=== PATIENT | female | born 2000 | race Caucasian/White ===

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

== ENCOUNTER 2021-01-04 18:14 | Outpatient (CLI) | payer OTHER, SELFPAY ==
[2021-01-04 18:36] VITALS: BP 133/71; PULSE 106; RESP 18; TEMP 36.7; O2SAT 97; BMI 34.6
[2021-01-04 18:42] VITALS: BMI 34.6
[2021-01-04 18:45] LABS: Microscopic, Urine URINE MICROSCOPIC (MICROSCOPIC)
[2021-01-04 19:01] LABS: Appearance,Urine CLEAR (Clear); Blood, Urine Negative (Negative); Color,Urine AMBER (Yellow); Glucose,Urine (UA) Negative (Negative); Ketones,Urine TRACE (Negative); Leukocyte Esterase,Urine TRACE (Negative); Nitrate,Urine Negative (Negative); PH,Urine 6.5 (5.0-8.5); Protein,Urine TRACE (Negative); Specific Gravity, Urine 1.025 (1.005-1.030)
[2021-01-04 19:06] LABS: Bilirubin,Urine Negative (Negative)
[2021-01-04 19:10] LABS: Barbiturates Screen,Urine Negative ng/ml (<200)
[2021-01-04 19:11] LABS: Benzodiazepines Screen,Urine Negative ng/ml (<200)
[2021-01-04 19:12] LABS: Amphetamine/Metha Screen,Urine Negative ng/ml (<1000); Cannabinoid Screen,Urine Negative ng/ml (<50)
[2021-01-04 19:13] LABS: Cocaine Screen,Urine Negative ng/ml (<300)
[2021-01-04 19:14] LABS: Methadone Screen,Urine Negative ng/ml (<300); Opiate Screen,Urine Negative ng/ml (<300)
[2021-01-04 19:15] LABS: Phencyclidine Screen,Urine Negative ng/ml (<25)
== END 2021-01-04 21:40 | disposition home or self-care (01) ==
LOC: OBOUT 18:15 → OB 18:17
PROVIDERS: Visit Provider Obstetrics & Gynecology
DX: Z34.90 Encounter for supervision of normal pregnancy, unspecified, unspecified trimester (principal)
CPT/HCPCS: 59025; 80305; 81001; 87086; 96365; 96372; G0463

== ENCOUNTER → 2021-01-20 16:16 | Outpatient (CLI) | payer OTHER, SELFPAY | PROVIDERS: PCP Physician Assistant; Visit Provider Nurse Practitioner Obstetrics & Gynecology | DX: Z01.812 Encounter for preprocedural laboratory examination (principal); Z20.822 Contact with and (suspected) exposure to COVID-19 | CPT/HCPCS: U0003 ==

== ENCOUNTER 2021-01-22 05:02 | Inpatient (IN) | payer OTHER, SELFPAY ==
[2021-01-22 05:05] VITALS: BMI 35.1
[2021-01-22 05:38] LABS: Microscopic, Urine URINE MICROSCOPIC (MICROSCOPIC)
[2021-01-22 05:43] LABS: Basophils % 0.3 % (0.1-2.0); Eosinophils # 0.1 K/mm3 (0.0-0.4); Eosinophils % 0.6 % (0.1-12.0); Hematocrit 35.1 % (37.0-47.0); Hemoglobin 11.9 g/dL (12.2-16.2); Lymphocytes # 2.5 K/mm3 (0.7-4.5); Lymphocytes % 24.3 % (10-50); Mean Corpuscular HGB Conc 33.8 g/dL (31.8-35.4); Mean Corpuscular Volume 88.8 fl (81-99); Mean Platelet Volume 10.1 fl (7.4-10.4); Monocytes # 0.6 K/mm3 (0.1-1.0); Monocytes % 5.4 % (1.7-9.3); Neutrophils # 7.1 K/mm3 (1.8-7.8); Neutrophils % 69.4 % (37.0-80.0); Platelet Count 304 K/mm3 (142-424); Red Blood Count 3.95 M/mm3 (4.20-5.40); Red Cell Distribution Width 14.3 % (11.5-17.5); White Blood Count 10.3 K/mm3 (4.5-13.0)
[2021-01-22 05:44] LABS: Appearance,Urine CLEAR (Clear); Blood, Urine Negative (Negative); Glucose,Urine (UA) Negative (Negative); Ketones,Urine Negative (Negative); Leukocyte Esterase,Urine Negative (Negative); Nitrate,Urine Negative (Negative); Protein,Urine Negative (Negative); Specific Gravity, Urine >= 1.030 (1.005-1.030)
[2021-01-22 05:45] LABS: Bilirubin,Urine Negative (Negative); Color,Urine Dark Yellow (Yellow)
[2021-01-22 05:50] VITALS: BP 135/72; PULSE 89; RESP 18; TEMP 36.9; O2SAT 97; BMI 35.1
[2021-01-22 05:53] LABS: Bacteria,Urine Trace /lpf; Squamous Epithelial Cell,Urine Occasional #/hpf (0-5); WBC,Urine Occasional #/hpf (0-3)
[2021-01-22 05:55] LABS: Barbiturates Screen,Urine Negative ng/ml (<200)
[2021-01-22 05:56] LABS: Benzodiazepines Screen,Urine Negative ng/ml (<200)
[2021-01-22 05:57] LABS: Amphetamine/Metha Screen,Urine Negative ng/ml (<1000); Cannabinoid Screen,Urine Negative ng/ml (<50)
[2021-01-22 05:58] LABS: Cocaine Screen,Urine Negative ng/ml (<300)
[2021-01-22 05:59] LABS: Methadone Screen,Urine Negative ng/ml (<300); Opiate Screen,Urine Negative ng/ml (<300)
[2021-01-22 06:00] LABS: Phencyclidine Screen,Urine Negative ng/ml (<25)
[2021-01-22 07:57] VITALS: BP 105/58; PULSE 65; RESP 17; TEMP 37; O2SAT 99
--- NOTE | 2021-01-22 08:27 | HMH.LABNOT ---
Labor Note - Subjective: Date: 01/22/21 Time: 08:27 regular contraction - Objective: NST:: Reactive Contractions:: every 2-3 minutes Cervical Dilation:: 3 Effacement:: 75% Station: -1 Membranes: artificially ruptured - Fetus: Monitoring?: Yes monitoring type:: Internal and External Comment:: I inserted an IUPC. - Assessment: Labor progressing?: Yes Cephalopelvic disproportion?: No Patient Problems: All Active Problems (Last Updated 07/01/20 @ 15:14 by XU Hendricks) (Acute) Hypokalemia (Acute) Pharyngitis (Acute) Bronchitis (Acute) Acute cystitis with hematuria (Acute) Bacteriuria with pyuria (Acute) URI (upper respiratory infection) (Acute) Dizziness (Acute) Rh negative status during (Chronic) Sinusitis (Acute) Acute maxillary sinusitis, unspecified (Acute) UTI (urinary tract infection) (Acute) Right serous otitis media (Acute) Vomiting and diarrhea (Acute) Headache (Acute) Otitis media (Acute) Vomiting (Acute) - Plan: Anesthesia for epidural?: Yes Continue to labor down?: Yes Plan for ?: No Continue to monitor?: Yes Start pushing?: No
--- NOTE | 2021-01-22 08:28 | HMH.OBAPHP ---
OB - H&P: HPI Antepartum - History of Present Illness Chief complaint: Term History of present illness: She is a 20-year-old 2 para 1 at 39 weeks gestational age. She was having some contractions and pressure and as result of that we elected to induce her labor at term. - History of Present Criteria for establishing EDC:: LMP confirmed by 1st trimester US care: good care Ultrasounds: normal 1st trimester US, normal mid trimester US Obstetrical complications: none Medical complications: none - Labs Blood type: O (-) negative Rubella: immune RPR/VDRL: nonreactive GBS status: negative HBsAG: negative [facility] History I have reviewed the patient's past medical history: Yes Medical History: Denies:: Anxiety, Cancer, Diabetes Mellitus Type 1, Diabetes Mellitus Type 2, Migraine, MRSA, Seizures *Have you ever received a pneumonia vaccine?: No *Have you received a flu vaccine this season?: No Other Surgeries: Yes: No Previous Surgery. No: Amputation: No Fractures: No - *Social History Smoking Status: Current every day smoker Tobacco Type: cigarettes # Packs/Day (cigarettes): 1 Alcohol Intake: never Alcohol Intake Frequency:: other Substance Use Type: former substance user, marijuana *Occupational Status:: unemployed *Travel in the last 8 weeks: None - Psychiatric History Pschychiatric History:: Denies:: Anxiety Family Hx:: No significant family history Para: 1 Review of Systems - Review of Systems Review of systems:: pertinent systems reviewed and negative unless documented below Meds Home Medications Medication Instructions Recorded Confirmed Type Vit No.126/Iron/Folic 1 tab PO DAILY 01/22/21 01/22/21 History [Classic ] Allergies Allergy/AdvReac Type Severity Reaction Status Date / Time No Known Allergies Allergy Verified 01/20/21 15:29 OB - H&P: Exam - Physical Exam Vital signs: Temp Pulse Resp BP Pulse Ox 98.6 F 65 17 105/58 L 99 01/22/21 07:57 01/22/21 07:57 01/22/21 07:57 01/22/21 07:57 01/22/21 07:57 - Constitutional no acute distress - Routine HEENT Exam Head: Present: normocephalic Eye: Present: EOMI, PERRL ENT: Present: mucous membranes moist - Routine Neck Exam Present: supple, full ROM - Routine Respiratory Exam Absent: accessory muscle use (good air entry bilaterally), respiratory distress, wheezes, crackles - Routine Cardiovascular Exam Present: RRR. Absent: murmur - Routine Abdominal Exam Present: soft, normoactive bowel sounds. Absent: tenderness, distended, guarding - Routine Rectal Exam Patient deferred: visual exam, digital exam - Routine Exam Patient deferred: external exam, groin exam, perineal exam - Routine Extremities Exam Present: full ROM. Absent: cyanosis, edema - Routine Skin Exam Present: intact. Absent: cyanosis - Routine Neurological Exam Present: alert, oriented X3 - Routine Psychiatric Exam Present: normal affect OB - Results - Labs Labs: Short CBC 01/22/21 Range/Units 05:30 WBC 10.3 (4.5-13.0) K/mm3 Hgb 11.9 L (12.2-16.2) g/dL Hct 35.1 L (37.0-47.0) % Plt Count 304 (142-424) K/mm3 Urine 01/22/21 Range/Units 05:10 Urine Color Dark yellow (Yellow) Urine Appearance Clear (Clear) Urine pH 6.0 (5.0-8.5) Ur Specific [place] >= 1.030 (1.005-1.030) Urine Protein Negative (Negative) Urine Glucose (UA) Negative (Negative) OB - A/P Antepartum (1) Term delivered Status: Acute (2) Intrauterine in teenager Status: Acute - Additional Plan Planning to breastfeed?: No Plan: induction Additional Information:: She is admitted for labor and delivery.
--- NOTE | 2021-01-22 11:15 | HMH.ANESCL ---
[facility] Anesthesia Checklist - Patient Identification Patient Identification: Arm Band - Structural Data Admitted From: Inpatient Planned Operative Procedure/s: labor epidural Consent for Planned Operative Procedure(s) Verified: Yes Verified Documents: Surgical Consent, History and Physical - NPO Status Verified Time NPO: 00:00 - Additional verifications Anesthesia Reactions: No - Airway Assessment C-Spine Mobility Assessed: Yes (mp2) TMJ Mobility Assessed: Yes Dentition: Good Dentition - Neurological Assessment Level of Consciousness: Awake, Alert - Anesthesia Plan Anesthesia Risk discussed: Yes Anesthesia Plan: Verified ASA Class: II Anesthesia Type: Epidural [facility] History I have reviewed the patient's past medical history: Yes Medical History: Denies:: Anxiety, Cancer, Diabetes Mellitus Type 1, Diabetes Mellitus Type 2, Migraine, MRSA, Seizures *Have you ever received a pneumonia vaccine?: No *Have you received a flu vaccine this season?: No Anesthesia experience/problems:: nac Other Surgeries: Yes: No Previous Surgery. No: Amputation: No Fractures: No - *Social History Smoking Status: Current every day smoker Tobacco Type: cigarettes # Packs/Day (cigarettes): 1 Alcohol Intake: never Alcohol Intake Frequency:: other Substance Use Type: former substance user, marijuana *Occupational Status:: unemployed *Travel in the last 8 weeks: None - Psychiatric History Pschychiatric History:: Denies:: Anxiety Family Hx:: No significant family history Para: 1
[2021-01-22 11:58] VITALS: BP 118/58; PULSE 82; RESP 18; TEMP 36.6
--- NOTE | 2021-01-22 13:57 | HMH.LABNOT ---
Labor Note - Subjective: Date: 01/22/21 Time: 10:30 regular contraction - Objective: NST:: Reactive Contractions:: every 2-3 minutes Effacement:: 75% Membranes: artificially ruptured - Fetus: Monitoring?: Yes monitoring type:: Internal and External - Assessment: Labor progressing?: Yes Cephalopelvic disproportion?: No Patient Problems: All Active Problems (Last Updated 07/01/20 @ 15:14 by XU Hendricks) Term delivered (Acute) Intrauterine in teenager (Acute) (Acute) Hypokalemia (Acute) Pharyngitis (Acute) Bronchitis (Acute) Acute cystitis with hematuria (Acute) Bacteriuria with pyuria (Acute) URI (upper respiratory infection) (Acute) Dizziness (Acute) Rh negative status during (Chronic) Sinusitis (Acute) Acute maxillary sinusitis, unspecified (Acute) UTI (urinary tract infection) (Acute) Right serous otitis media (Acute) Vomiting and diarrhea (Acute) Headache (Acute) Otitis media (Acute) Vomiting (Acute) - Plan: Anesthesia for epidural?: Yes Continue to labor down?: Yes Plan for ?: No Continue to monitor?: Yes Start pushing?: No
--- NOTE | 2021-01-22 13:58 | HMH.LABNOT ---
Labor Note - Subjective: Date: 01/22/21 Time: 13:58 regular contraction - Objective: NST:: Reactive Contractions:: every 2-3 minutes Effacement:: 90% Station: -1 Membranes: artificially ruptured - Fetus: Monitoring?: Yes monitoring type:: Internal and External - Assessment: Labor progressing?: Yes Cephalopelvic disproportion?: No Patient Problems: All Active Problems (Last Updated 07/01/20 @ 15:14 by XU Hendricks) Term delivered (Acute) Intrauterine in teenager (Acute) (Acute) Hypokalemia (Acute) Pharyngitis (Acute) Bronchitis (Acute) Acute cystitis with hematuria (Acute) Bacteriuria with pyuria (Acute) URI (upper respiratory infection) (Acute) Dizziness (Acute) Rh negative status during (Chronic) Sinusitis (Acute) Acute maxillary sinusitis, unspecified (Acute) UTI (urinary tract infection) (Acute) Right serous otitis media (Acute) Vomiting and diarrhea (Acute) Headache (Acute) Otitis media (Acute) Vomiting (Acute) - Plan: Anesthesia for epidural?: Yes Continue to labor down?: Yes Plan for ?: No Continue to monitor?: Yes Start pushing?: No
[2021-01-22 16:03] VITALS: BP 123/74; PULSE 76; RESP 17; TEMP 36.8; O2SAT 99
--- NOTE | 2021-01-22 17:15 | HMH.LABNOT ---
Labor Note - Subjective: Date: 01/22/21 Time: 17:15 regular contraction - Objective: NST:: Reactive Contractions:: every 2-3 minutes Effacement:: 100% Station: 0 Membranes: artificially ruptured - Fetus: Monitoring?: Yes monitoring type:: Internal and External - Assessment: Labor progressing?: Yes Cephalopelvic disproportion?: No Patient Problems: All Active Problems (Last Updated 07/01/20 @ 15:14 by XU Hendricks) Term delivered (Acute) Intrauterine in teenager (Acute) (Acute) Hypokalemia (Acute) Pharyngitis (Acute) Bronchitis (Acute) Acute cystitis with hematuria (Acute) Bacteriuria with pyuria (Acute) URI (upper respiratory infection) (Acute) Dizziness (Acute) Rh negative status during (Chronic) Sinusitis (Acute) Acute maxillary sinusitis, unspecified (Acute) UTI (urinary tract infection) (Acute) Right serous otitis media (Acute) Vomiting and diarrhea (Acute) Headache (Acute) Otitis media (Acute) Vomiting (Acute) Comment:: She continues to do well. The baby's head comes down with a contraction. The cervix is then completely out. Will await full dilatation and then start pushing. - Plan: Anesthesia for epidural?: Yes Continue to labor down?: Yes Plan for ?: No Continue to monitor?: Yes Start pushing?: No
--- NOTE | 2021-01-22 18:09 | HMH.DN ---
- Delivery Note Delivery Date:: 01/22/21 Delivery Time:: 17:59 Anesthesia Type: Epidural Was labor medically induced?: Yes Induction method: per pitocin protocol Gestational age (weeks): 39 delivered prior to 39 weeks?: No Gender: Male at 1 minute: 9 at 5 minutes: 10 Delivery Procedure:: She is a 20-year-old 2 para 1 at 39 weeks gestational age. She was feeling pressure and discomfort so we elected to induce her labor at term. She was started on IV oxytocin and had her membranes ruptured. She progressed under labor epidural to full dilation and delivered spontaneously a liveborn male child at 5:59 PM in the afternoon of January 22, 2021. On deliver the head the anterior shoulder then easily delivered followed by the rest the 's body atraumatically. The baby was vigorous and the oropharynx and nasopharynx were bulb suction. We allowed the cord to continue to pulsate for approximately 1 minute. The cord was then doubly clamped and cut. The infant was placed on the mother's abdomen for further care. The nurses assigned Apgars of 9 at 1 minute and 10 at 5 minutes. We then obtained cord blood as well as cord pH. This is currently pending. There were no perineal or vaginal lacerations. She received IV oxytocin using gentle traction on the cord and countertraction on the fundus I was able to easily deliver the placenta at 6:02 PM. It had a normal three-vessel cord. She has O Rh- blood, she is rubella immune and was group B streptococcus negative. She plans to bottlefeed. Her estimated blood loss was approximately 300 cc. Placental Delivery Description: Spontaneous
[2021-01-22 18:19] LABS: Cord Blood PH 7.31 (7.35-7.45)
[2021-01-23 07:39] LABS: Hematocrit 28.4 % (37.0-47.0); Hemoglobin 9.9 g/dL (12.2-16.2)
[2021-01-23 08:00] VITALS: BP 123/70; PULSE 73; RESP 18; TEMP 36.9; O2SAT 98
--- NOTE | 2021-01-23 08:16 | P.PN_ITS ---
Internal Medicine - PN: Subj *Date: 01/23/21 *Time: 08:16 Interval history: She is doing very well this morning. She is eating and drinking and ambulating. She is bottlefeeding. Her lochia is normal. Exam Vital signs and Labs for Last 24 Hours: Temp Pulse Resp BP Pulse Ox 98.2 F 76 17 123/74 99 01/22/21 16:03 01/22/21 16:03 01/22/21 16:03 01/22/21 16:03 01/22/21 16:03 Laboratory Results - last 24 hr 01/22/21 05:10: Urine Color Dark yellow, Urine Appearance Clear, Urine pH 6.0, Ur Specific [place] >= 1.030, Urine Protein Negative, Urine Glucose (UA) Negative, Urine Ketones Negative, Urine Blood Negative, Urine Nitrate Negative, Urine Bilirubin Negative, Urine Urobilinogen 1.0, Ur Leukocyte Esterase Negative, Urine WBC Occasional, Ur Squamous Epith Cells Occasional, Urine Bacteria Trace 01/22/21 05:10: Urine Opiates Screen Negative, Urine Methadone Screen Negative, Ur Barbituates Screen Negative, Ur Phencyclidine Scrn Negative, Ur Amphetamines Screen Negative, U Benzodiazepines Scrn Negative, Urine Cocaine Screen Negative, U Marijuana (THC) Screen Negative 01/22/21 05:30: Blood Type O Negative, Antibody Screen Positive, Crossmatch (AHG) See Detail 01/22/21 05:30: Antibody Identification Anti-D 01/22/21 18:15: Cord ABG pH 7.31 L 01/23/21 07:22: Hgb 9.9 L, Hct 28.4 L I & O for Last 24 hours: Intake & Output 01/20/21 01/21/21 01/22/21 01/23/21 11:59 11:59 11:59 11:59 Weight 211 lb - Constitutional no acute distress - *Routine HEENT Exam Head: Present: normocephalic Eye: Present: EOMI, PERRL ENT: Present: mucous membranes moist Assessment and Plan (1) Term delivered Status: Acute Category: Medical Code(s): O80 - Encounter for full-term uncomplicated delivery (2) Intrauterine in teenager Status: Acute Category: Medical Code(s): Z34.80 - Encounter for supervision of other normal , unspecified trimester - Assessment and plan all Dx Assessment and Plan for all problems:: She is doing well this morning. We will plan to send her home tomorrow.
--- NOTE | 2021-01-23 10:43 | SW/DCPLANNER ---
I received referral for this patient regarding: THC positive (3 visits) and only 7 visits. I spoke with patient this morning in room regarding (Salvatore Tobin) born yesterday 01/22/21. Infants father was also present at time of my visit: Silas Tobin 06/25/98. Patient was positive for THC on: 07/01/20, 07/29/20 and 08/19/20. Patient was negative for THC on: 11/18/20, 12/22/20, 01/04/21, 01/08/21 and 01/22/21 (infant was also negative on admission 01/22/21). Patient stated that she had an in-depth conversation with Dr Antonio after third visit and decided to stop using THC. Patient, , other child (Lele Marina), Silas and his mother (Mera Valencia) will reside at [address] [place] [address]. Patients contact number is [phone]. Patient stated that she has had past Social Service involvement due to being in Foster Care as a child but was not an open case. Patient is already established with [facility] and is interested in [facility]. I will speak with [facility] regarding this patient today. Patient stated that she currently has: carseat, crib, clothing, diapers and will be bottle feeding. Patient is planned to discharge home tomorrow 01/23/21. Patients nurse (Martha) has stated that patient is appropriate with infant. has started scoring (4) due to caffeine/nicotine. I will continue to follow up with nursing staff: if no further issues then patient will discharge home tomorrow with infant.
[2021-01-23 16:00] VITALS: BP 120/70; PULSE 71; RESP 18; TEMP 36.6; O2SAT 96
[2021-01-24 08:00] VITALS: BP 131/75; PULSE 73; RESP 18; TEMP 36.8; O2SAT 98
--- NOTE | 2021-01-24 08:11 | P.DS_ITS ---
General - General Admission date:: 01/22/21 Discharge date: 01/24/21 HPI - History of Present Illness History of present illness: She is a 20-year-old 2 para 1 at 39 weeks gestational age. We brought her in for induction of labor at term. She was having pressure and occasional contractions. Hospital Course Hospital Course: She was started on IV oxytocin had her membranes ruptured. Under labor epidural progressed to full dilation and delivered spontaneously a liveborn male child at 5:59 PM in the afternoon of January 22, 2021. The baby weighed 7 pounds 0 ounces and was 19-1/4 inches long. He had Apgars of 9 at 1 minute and 9 at 5 minutes. There were no perineal or vaginal lacerations. She has done well and has remained afebrile without her hospitaliza tion. She is eating and drinking and ambulating. She is bottlefeeding. Her lochia is normal. She has O Rh- blood and has received RhoGam. She is rubella immune and was group B streptococcus negative. She will be discharged home to follow-up with me in approximately 2 weeks time. She will continue with her vitamins and iron. She was given the usual instructions with respect to limiting her activity, driving and sexual activity. Her dry yard worker is Dr. Grover. Rhogam Administration: Given Objective Vital signs: Temp Pulse Resp BP Pulse Ox 97.9 F 71 18 120/70 96 01/23/21 16:00 01/23/21 16:00 01/23/21 16:00 01/23/21 16:00 01/23/21 16:00 no acute distress - *Routine HEENT Exam Head: Present: normocephalic Eye: Present: EOMI, PERRL ENT: Present: mucous membranes moist Results Labs on day of discharge: Labs from last 24 hours 01/24/21 01/23/21 01/23/21 08:01 07:22 07:22 Blood Type O Negative Antibody Screen Positive Antibody Identification Cancelled Screen Negative Baby's Rh Status Positive Rhogam Infusion Rhogam release DS: Diagnosis - Discharge Diagnosis (1) Term delivered Status: Acute (2) Intrauterine in teenager Status: Acute Discharge Plan - Patient Discharge Instructions ACTIVITY: No heavy lifting DIET: continue same diet - Follow up Plan Disposition: Home, Self-Long-Term Medications: Home Medications Medication Instructions Recorded Confirmed Type Vit No.126/Iron/Folic 1 tab PO DAILY 01/22/21 01/22/21 History [Classic ] Prescriptions/Medication Reconciliation: Continued Vit No.126/Iron/Folic [Classic ] 1 tab PO DAILY - Problem Reconciliation Problems Reviewed?: Yes
[2021-01-24 12:00] VITALS: BP 128/66; PULSE 74; RESP 18; TEMP 36.9; O2SAT 95
== END 2021-01-24 14:45 | disposition home or self-care (01) | DRG 807 ==
PROVIDERS: Admitting Provider Nurse Practitioner Obstetrics & Gynecology; PCP Nurse Practitioner Obstetrics & Gynecology; Visit Provider Nurse Practitioner Obstetrics & Gynecology
DX: O99.334 Smoking (tobacco) complicating childbirth (principal); Z37.0 Single live birth; Z3A.39 39 weeks gestation of pregnancy
CPT/HCPCS: 59409; 36415; 59025; 80305; 81001; 82800; 85014; 85018; 85025; 85461; 86850; 86870; 94761; C1758; G0283; J0595; J2790; U0003

== ENCOUNTER 2024-01-17 15:32 | Outpatient (CLI) | payer SELFPAY ==
--- NOTE | 2024-01-17 15:33 | US_ITS ---
PROCEDURE: US OB >= 14 WEEKS FETUS CLINICAL INDICATION: missed periods, confirm dates and viability COMPARISON: No exams were available for comparison FINDINGS: Transabdominal sonographic images of the pelvis were obtained. Her last menstrual period and her established due date are unknown. Single viable intrauterine gestation. Breech position. Placenta: Posteriorplacenta grade 1. There is an average amount of fluid. The cervix appears satisfactory. Closed and measuring 3.15 cm in length. Complete survey performed and was unremarkable on the submitted images as in PACS. No discrete anomalies identified on survey imaging by technologist. Active fetus. Three-vessel cord with satisfactory umbilical cord insertion. 4- chamber heart noted. Situs, aortic arch, LVOT, RVOT, three-vessel view appear normal. Survey of brain & ventricles Unremarkable. Cerebellum, thalamus, choroid plexus, cisterna magna appear normal. Face and neck survey unremarkable. Profile, nasion, lips and nose appeared normal. Diaphragm and chest views unremarkable. Abdomen: Both kidneys noted and unremarkable. Stomach and bladder noted and satisfactory. Spine: Survey of the spine satisfactory with no anomalies identified nor imaged. Cervical, thoracic, lower spine appear normal. Both arms and legs noted. Amniotic Fluid: Adequate. Measurements: Average ultrasound age 21weeks 0 days. Estimated due date by ultrasound age 0805/29/2024. Estimated weight 389g BPD = 20weeks 6days HC = 20weeks 5days AC = 21weeks 1day FL = 21weeks 0 days Growth Percentile= 42 Heart Rate = 142bpm Cerebellum = 20weeks 4days Humerus = 20weeks 6days HC/AC is 1.15 FL/BPD is 0.71 FL/AC is 0.22 IMPRESSION: 1. Viable fetus in the breech presentation with a posterior placenta grade 1. 2. The fluid is within normal limits. 3. Anatomical scan appears normal. 4. We did not get a complete ultrasound of the heart and would suggest repeating a cardiac scan in 3-4 weeks. 5. Her due date from this ultrasound will be 05/29/2024. Dictated by: Jeremías nAtonio MD 01/18/2024 09:59 Jeremías Antonio MD in [facility] 01/18/2024 09:59
[2024-01-17 18:24] LABS: HCG,Quantitative 26594 mIU/ml (0-5.42)
[2024-01-19 12:12] LABS: Progesterone 45.8 ng/mL (.)
== END 2024-01-17 23:59 | disposition home or self-care (01) ==
LOC: RAD 15:33
PROVIDERS: PCP Physician Assistant; Visit Provider Nurse Practitioner Obstetrics & Gynecology
DX: O36.80X0 Pregnancy with inconclusive fetal viability, not applicable or unspecified (principal); N92.6 Irregular menstruation, unspecified; Z87.59 Personal history of other complications of pregnancy, childbirth and the puerperium
CPT/HCPCS: 36415; 76805; 84144; 84702

== ENCOUNTER 2024-03-02 13:00 | Outpatient (CLI) | payer OTHER, SELFPAY ==
--- NOTE | 2024-03-02 13:06 | US_ITS ---
PROCEDURE: US OB FOLLOW UP CLINICAL INDICATION: F/U US to repeat Heart of Fetus due to position COMPARISON: US US OB >= 14 WEEKS FETUS from 01/17/2024 FINDINGS: Transabdominal sonographic images of the pelvis were obtained. The following parameters are obtained: From her established due date she is 27 weeks 3 days. Viable fetus in the cephalic presentation with a posterior placenta grade 2. The cervix measures 4.4 cm. heart rate: 134bpm bpm. Amniotic fluid index: MVP 4.19 cm. No obvious anomalies evident. profile seen, stomach, bladder, kidneys, three-vessel cord appear normal. The following heart structures were seen and appear normal, LVOT, RVOT, three-vessel view, four-chamber heart. IMPRESSION: 1. Viable fetus in the cephalic presentation with a posterior placenta grade 2. 2. The fluid is within normal limits. 3. Cardiac scan today appears normal. Limited anatomical scan appears normal. Dictated by: Jeremías Antonio MD 03/02/2024 14:38 Jeremías Antonio MD in [facility] 03/02/2024 14:38
== END 2024-03-02 23:59 | disposition home or self-care (01) ==
PROVIDERS: PCP Physician Assistant; Visit Provider Nurse Practitioner Obstetrics & Gynecology
DX: O26.892 Other specified pregnancy related conditions, second trimester (principal); Z36.2 Encounter for other antenatal screening follow-up; Z3A.27 27 weeks gestation of pregnancy
CPT/HCPCS: 76816; 87086

== ENCOUNTER 2024-05-17 12:09 | Inpatient (IN) | payer OTHER, SELFPAY ==
[2024-05-17] VITALS (8 sets, daily range): BP systolic 117–165; BP diastolic 66–100; PULSE 54–69; RESP 16–19; TEMP 36.9–37; O2SAT 94–98; BMI 29.1
--- NOTE | 2024-05-17 12:17 | ECG_ITS ---
APPROVED REPORT Exam: Resting ECG HR:66 bpm ECG Measurements Heart Rate 66 AXES [place] 168 P 33 QRSd 82 QRS 78 QT 392 T 52 QTc 405 Conclusion SINUS RHYTHM NORMAL ECG Electronically signed by : AMANDA HEARD, 05/17/2024 16:08:37
[2024-05-17] MEDS: ONDANSETRON 4MG/2ML VIAL 4 MG IV (12:30)
[2024-05-17] MEDS: LACTATED RINGERS 1000ML 1,000 ML 999 ML IV ×2 (12:30→15:38)
[2024-05-17 12:32] LABS: Basophils # 0.1 K/mm3 (0-0.2); Basophils % 0.5 % (0.1-2.0); Eosinophils # 0.1 K/mm3 (0.0-0.4); Eosinophils % 0.7 % (0.1-12.0); Hemoglobin 12.1 g/dL (12.2-16.2); Lymphocytes # 2.3 K/mm3 (0.7-4.5); Lymphocytes % 20.3 % (10-50); Mean Corpuscular HGB Conc 34.7 g/dL (31.8-35.4); Mean Corpuscular Hemoglobin 32.7 pg (27.0-31.2); Mean Corpuscular Volume 94.4 fl (81-99); Mean Platelet Volume 9.4 fl (7.4-10.4); Monocytes # 0.4 K/mm3 (0.1-1.0); Monocytes % 3.7 % (1.7-9.3); Neutrophils # 8.5 K/mm3 (1.8-7.8); Neutrophils % 74.8 % (37.0-80.0); Platelet Count 286 K/mm3 (142-424); White Blood Count 11.4 K/mm3 (4.8-10.8)
[2024-05-17] MEDS: NALOXONE 2MG/2ML SYRINGE 2 MG IV (12:38)
[2024-05-17 12:39] LABS: Lactate Venous 1.5 mmol/L (0.4-2.0); VBG Base Excess -5.9 mmol/L (-2.4-2.3); VBG Oxygen Saturation 99.1 % (50-70); VBG PCO2 21.6 mmol/L (35-51); VBG PH 7.52 mmol/L (7.31-7.41); VBG PO2 192.7 mmol/L (28-40); VBG Total CO2 17.7 mmol/L (23-27)
[2024-05-17 12:40] LABS: Chloride 110 mmol/L (98-107)
[2024-05-17 12:41] LABS: Albumin Level 3.6 g/dl (3.5-5.0); Potassium 3.9 mmoL/L (3.5-5.1); Sodium 135 mmol/L (136-145)
[2024-05-17 12:43] LABS: Activated Partial Thrombo Time 26.2 seconds (22.8-30.6); Anion Gap 9.9 mEq/L (5-15); Blood Urea Nitrogen 8 mg/dl (7-17); Carbon Dioxide 19 mmol/L (22.0-30.0); Creatinine Clearance Estimated 183 mL/min (50-200); Estimated Glomerular Filt Rate 124 ml/min (>60); GFR (African American) 150 ML/MIN (>60); INR 0.82 (0.9-1.1); Prothrombin Time 9.4 seconds (10.1-12.5)
[2024-05-17 12:44] LABS: Alanine Aminotransferase 28 U/L (12-78); Albumin/Globulin Ratio 1.1 (1.1-1.8); Alkaline Phosphatase 234 U/L (38-126); Aspartate Amino Transferase 31 U/L (14-36); Bilirubin,Total 0.6 mg/dl (0.2-1.3); Calcium 8.7 mg/dl (8.4-10.2); Globulin 3.4 g/dL (1.3-3.2); Glucose 103 mg/dl (74-100)
[2024-05-17 12:54] LABS: Acetaminophen < 10 ug/ml (10-30); Ethyl Alcohol < 10 mg/dl (0-10); Salicylate < 1.0 mg/dL (2.0-20.0)
--- NOTE | 2024-05-17 13:00 | US_ITS ---
PROCEDURE: US OB FOLLOW UP CLINICAL INDICATION: trauma, 35 wks COMPARISON: No exams were available for comparison FINDINGS: Transabdominal sonographic images of the pelvis were obtained. The following parameters are obtained: From her established due date she is 38 weeks and 2 days. Viable fetus in the cephalic presentation with a posterior lateral placenta grade 1-2. weight: 2599 grams 5 lb 12 oz. heart rate: 117bpm bpm. Average ultrasound age 36 weeks 4 days. BPD: 35weeks 2days HC: 35weeks 1day AC: 34weeks 5days FL: 36weeks 1day HC/AC: 1.02 FL/BPD: 0.81 FL/AC: 0.23 Growth percentile: Not calculated Amniotic fluid index: 0cm, MVP 0.8 cm, anhydramnios. No obvious anomalies evident. Stomach, bladder, kidneys, three-vessel cord appear normal. IMPRESSION: 1. Viable fetus in the cephalic presentation with a posterolateral placenta grade 1-2. 2. Oligohydramnios- the fluid is absent with a single pocket measuring 0.8 cm. 3. Percentiles were not done but the fetus is globally small measuring approximately 2 weeks behind on its growth. 4. The AC is almost 4 weeks behind. Dictated by: Jeremías Antonio MD 05/17/2024 17:30 Jeremías Antonio MD in OV 05/17/2024 17:30
[2024-05-17 13:09] LABS: Microscopic, Urine URINE MICROSCOPIC (MICROSCOPIC)
[2024-05-17 13:12] LABS: Appearance,Urine CLOUDY (Clear); Blood, Urine TRACE-I (Negative); Color,Urine YELLOW (Yellow); Glucose,Urine (UA) Negative (Negative); Ketones,Urine Negative (Negative); Leukocyte Esterase,Urine 2+ (Negative); Nitrate,Urine Negative (Negative); PH,Urine 6.5 (5.0-8.5); Protein,Urine TRACE (Negative); Specific Gravity, Urine 1.025 (1.005-1.030)
[2024-05-17 13:16] LABS: Bilirubin,Urine 1+ (Negative)
--- NOTE | 2024-05-17 13:17 | HMH.EDGENADL ---
Discharge Plan Disposition Patient Disposition: Admitted Clinical Impressions Clinical Impression: complicated by maternal drug use, antepartum Discharge ED Provider: Jazmin Issa General Adult HPI General Chief complaint: Overdose Stated complaint: overdose Time Seen by Provider: 05/17/24 12:24 Mode of Arrival: EMS Source of Information: Patient and EMS Limitations: No Limitations Description of Symptoms (Recalled from ER Triage Doc. by RN): pt to ED via ems. per EMS pt was found facedown on a set of 3 stairs. she appeared to be facing forward like she was going up the stairs. On arrival EMS gave her 2mg IV narcan to which they reported the patient began to become more responsive. on arrival to ED pt is alert and oriented but lethargic and hard to arouse. 1mg IV narcan order per MD at this time. pt reports she is 25 weeks and has been using methadone for 4 months but denies any other drug use at this time. pt denies any chest pain, SOB or injury. pt reports he doesnt remember falling and just laid down there. heart tones noted via doppler of 141 at this time History of Present Illness HPI narrative: This patient is a 24-year-old female on chronic methadone maintenance therapy he is currently 35 weeks presenting to the emergency department after being found down. Per EMS, the patient was found facedown on a set of 3 stairs. She appeared to be facing forward like she was going up the stairs. No obvious external signs of trauma per EMS. They gave her 2 mg of IV Narcan, and she became responsive and was alert and oriented. She then again became lethargic and hard to arouse, so she was given another milligram of IV Narcan here in the emergency department and then became more alert again. She denies any drug use aside from her methadone, which she states was administered today. She states that she follows regularly with Dr. Bates for OB care, but I see last visit from 03/02/2024 showed that it was her first visit and she was noted to be 27 weeks gestational age at that time. Patient denies any fall. She denies any recent fevers, chills, chest pain, shortness of breath, back pain, abdominal pain, leakage of fluid, vaginal bleeding, leg or arm pain, or other concerns. According to police officers who arrived on scene, her boyfriend was also at the scene and was similarly difficult to arouse. Related Data Home Medications ?Medication ?Instructions ?Recorded ?Confirmed vits no.[id number]-ferrous fum 1 tab PO DAILY Supplement 01/22/21 05/17/24 28 mg iron-folic acid 800 mcg tablet methadone 10 mg/mL oral 120 mg PO DAILY 05/17/24 05/17/24 concentrate (Methadone Intensol) Allergies Allergy/AdvReac Type Severity Reaction Status Date / Time No Known Allergies Allergy Verified 03/02/24 11:22 [facility] Disclaimer: The information contained in this section may have been updated after the patient was seen, as this information can be updated by other users. Medical History BCP ( control pills) initiation UTI (urinary tract infection) Family History Other Alcoholism Diabetes FHx: mental illness Heart attack Stroke Substance abuse Social History (Updated 05/17/24 @ 15:21 by Michelle Hobson RN) Smoking Status: Current every day smoker tobacco type: e-cigarettes alcohol intake: never substance use type: former substance user and marijuana current occupational status: unemployed Travel in the last 8 weeks: None ROS Obtained: Yes All systems reviewed & no additional complaints except as documented Physical Exam General General appearance: in no apparent distress Comment: Somnolent but arouses to voice. Bradycardic Head Head exam: atraumatic and normocephalic Eye Eye exam: Present normal appearance, PERRL and EOMI ENT ENT exam: Present normal exam, normal oropharynx, mucous membranes moist and normal external ear exam Neck Neck exam: Present normal inspection, full ROM and trachea midline; Absent tenderness Chest Chest inspection: Present normal inspection and symmetric chest wall rise; Absent tenderness Respiratory Respiratory exam: Present other (Mild respiratory depression); Absent wheezes, stridor or accessory muscle use Cardiovascular Cardiovascular exam: Present normal rhythm and bradycardia Abdominal Exam Abdominal exam: Present soft; Absent distention, tenderness, guarding, rebound or rigidity Comment: Gravid, no obvious bruising External exam: Present normal external exam Extremities Exam Extremities exam: Present normal inspection, full ROM and normal capillary refill; Absent tenderness or edema Back Exam Back exam: Present normal inspection and full ROM; Absent tenderness Neurological Exam Neurological exam: Present CN II-XII intact, normal gait and other (Initially somnolent, but after Narcan alert, oriented, and conversational.); Absent motor sensory deficit Psychiatric Psychiatric exam: Present flat affect Skin Skin exam: Present warm, dry and other (No obvious bruises or signs of trauma) Medical Decision Making Medical Records Medical records reviewed: Yes I reviewed the patient's medical records. Raul Inquiry Pt receiving controlled substance: No Vital Signs: 05/17/24 12:10 05/17/24 12:19 05/17/24 12:30 Temperature 98.6 F Temperature Source Oral Pulse Rate 67 58 L Pulse Rate [Left Radial] 69 Respiratory Rate 16 16 Blood Pressure 133/93 H 141/94 H Blood Pressure [Right Arm] 155/100 H Blood Pressure Mean [Right Arm] 118 Blood Pressure Source Blood Pressure Source [Right Arm] Automatic Cuff Blood Pressure Position Blood Pressure Position [Right Arm] Sitting 02 Sat by Pulse Oximetry 97 96 98 Oxygen Delivery Method Room Air Room Air Room Air 05/17/24 12:50 05/17/24 13:05 05/17/24 13:12 Temperature Temperature Source Pulse Rate 57 L 60 54 L Pulse Rate [Left Radial] Respiratory Rate 17 19 18 Blood Pressure 126/69 138/79 165/99 H Blood Pressure [Right Arm] Blood Pressure Mean [Right Arm] Blood Pressure Source Blood Pressure Source [Right Arm] Blood Pressure Position Blood Pressure Position [Right Arm] 02 Sat by Pulse Oximetry 98 95 94 L Oxygen Delivery Method Room Air Room Air Room Air 05/17/24 13:52 Temperature 98.6 F Temperature Source Oral Pulse Rate 54 L Pulse Rate [Left Radial] Respiratory Rate 18 Blood Pressure 165/99 H Blood Pressure [Right Arm] Blood Pressure Mean [Right Arm] Blood Pressure Source Automatic Cuff Blood Pressure Source [Right Arm] Blood Pressure Position Sitting Blood Pressure Position [Right Arm] 02 Sat by Pulse Oximetry Oxygen Delivery Method Room Air Lab Data Lab results reviewed: Yes I reviewed the patient's lab results. Lab Results 05/17/24 12:24: VBG pH 7.52 H, VBG pCO2 21.6 L, VBG pO2 192.7 H, VBG HCO3 17.0 L, VBG Total CO2 17.7 L, VBG O2 Saturation 99.1 H, VBG Base Excess -5.9 L, VBG Lactic Acid 1.5 05/17/24 12:25: WBC 11.4 H, RBC 3.70 L, Hgb 12.1 L, Hct 35.0 L, MCV 94.4, MCH 32.7 H, MCHC 34.7, RDW 14.0, Plt Count 286, MPV 9.4, Neut % (Auto) 74.8, Lymph % (Auto) 20.3, [place] % (Auto) 3.7, Eos % (Auto) 0.7, Baso % (Auto) 0.5, Neut # (Auto) 8.5 H, Lymph # (Auto) 2.3, [place] # (Auto) 0.4, Eos # (Auto) 0.1, Baso # (Auto) 0.1, PT 9.4 L, INR 0.82 L, APTT 26.2, Sodium 135 L, Potassium 3.9, Chloride 110 H, Carbon Dioxide 19 L, Anion Gap 9.9, BUN 8, Creatinine 0.60, Estimated Creat Clear 183, Estimated GFR 124, Est GFR ( Amer) 150, Glucose 103 H, Calcium 8.7, Total Bilirubin 0.6, AST 31, ALT 28, Alkaline Phosphatase 234 H, Total Protein 7.0, Albumin 3.6, Globulin 3.4 H, Albumin/Globulin Ratio 1.1, Salicylates < 1.0 L, Acetaminophen < 10 L, Plasma/Serum Alcohol < 10 05/17/24 13:05: Urine Color Yellow, Urine Appearance Cloudy, Urine pH 6.5, Ur Specific [place] 1.025, Urine Protein Trace, Urine Glucose (UA) Negative, Urine Ketones Negative, Urine Blood Trace-i, Urine Nitrate Negative, Urine Bilirubin 1+ A, Urine Urobilinogen 1.0, Ur Leukocyte Esterase 2+ A, Urine RBC 3-5, Urine WBC 20-50, Ur Squamous Epith Cells 10-20, Urine Bacteria 2+, Urine Opiates Screen Negative, Urine Methadone Screen Positive H, Ur Barbituates Screen Negative, Ur Phencyclidine Scrn Negative, Ur Amphetamines Screen Negative, U Benzodiazepines Scrn Negative, Urine Cocaine Screen Negative, U Marijuana (THC) Screen Negative 05/17/24 14:00: WBC 10.7, RBC 3.51 L, Hgb 11.6 L, Hct 33.4 L, MCV 95.4, MCH 33.1 H, MCHC 34.7, RDW 13.8, Plt Count 271, MPV 9.2, Neut % (Auto) 78.8, Lymph % (Auto) 16.3, [place] % (Auto) 3.5, Eos % (Auto) 0.9, Baso % (Auto) 0.4, Neut # (Auto) 8.4 H, Lymph # (Auto) 1.7, [place] # (Auto) 0.4, Eos # (Auto) 0.1, Baso # (Auto) 0.1, Blood Type O Negative, Antibody Screen Negative 05/17/24 14:00 05/17/24 12:25 Orders (Tests/Meds): ED MEDICATIONS Generic Name Dose Route Start Last Admin Trade Name Freq PRN Reason Stop Dose Admin Citric Acid/Sodium Citrate 30 ml 05/17/24 15:36 Citric Acid/Sodium Citrate Oral Soln 30ml Udc PO 05/18/24 15:36 NEEDED PRN If required Diphenhydramine HCl 25 mg 05/17/24 15:36 Diphenhydramine 50mg/Ml Vial IV 05/18/24 15:36 Q4HP PRN Itching Diphenhydramine HCl 12.5 mg 05/17/24 15:36 Diphenhydramine 50mg/Ml Vial IV 05/18/24 15:36 Q4HP PRN Itching Ephedrine Sulfate 10 mg 05/17/24 15:36 Ephedrine Sulf 50mg/Ml Vial IV 05/18/24 15:35 NEEDED PRN Distress Ampicillin Sodium 1 gm/ Sodium 50 mls @ 100 mls/hr 05/17/24 19:00 Chloride IV 05/27/24 18:59 Q4H PATRICK Lactated Ringer's 1,000 mls @ 999 mls/hr 05/17/24 15:45 05/17/24 15:38 Lactated Ringer's 1000 Ml Bag IV 05/17/24 16:45 999 mls/hr .Q1H1M PATRICK Administration Dextrose/Lactated Ringer's 1,000 mls @ 500 mls/hr 05/17/24 15:45 05/17/24 15:39 Dextrose 5% In Lactated Ringer's 1000ml IV 05/17/24 17:44 500 mls/hr .Q2H PATRICK Administration Metoclopramide HCl 10 mg 05/17/24 15:36 Metoclopramide Hcl 10mg/2ml Vial IVP 05/18/24 15:36 NEEDED PRN Nausea And Vomiting Sodium Chloride 10 ml 05/17/24 15:36 Sodium Chloride 0.9% 10ml Flush Syringe IV 06/16/24 15:35 NEEDED PRN Maintain IV Site Discontinued Medications Generic Name Dose Route Start Last Admin Trade Name Dagmar PRN Reason Stop Dose Admin Lactated Ringer's 1,000 mls @ 999 mls/hr 05/17/24 12:26 05/17/24 12:30 Lactated Ringer's 1000 Ml Bag IV 05/17/24 13:26 999 mls/hr .Q1H1M ONE Administration Ampicillin Sodium 2 gm/ Sodium 100 mls @ 200 mls/hr 05/17/24 14:45 05/17/24 15:38 Chloride IV 05/17/24 15:14 200 mls/hr ONCE ONE Administration Naloxone HCl 2 mg 05/17/24 12:26 05/17/24 12:38 Naloxone 2mg/2ml Syringe IV 05/17/24 12:27 2 mg ONCE ONE Administration Ondansetron HCl 4 mg 05/17/24 12:26 05/17/24 12:30 Ondansetron 4mg/2ml Vial IV 05/17/24 12:27 4 mg ONCE ONE Administration ORDERS Category Date Time Status Type and Screen Stat BBK 05/17/24 14:00 Completed Care Management Consult [Consult to Case Management] [ Cons 05/17/24 13:44 Active CONS] Routine POCUS Point of Care (ER Only) Stat Exams 05/17/24 12:25 Completed Acetaminophen Stat Lab 05/17/24 12:25 Completed Activated Partial Thrombo Time Stat Lab 05/17/24 12:25 Completed Complete Blood Count Auto Diff Stat Lab 05/17/24 12:25 Completed Comprehensive Metabolic Panel Stat Lab 05/17/24 12:25 Completed Ethyl Alcohol Stat Lab 05/17/24 12:25 Completed Profile (No TS) Stat Lab 05/17/24 14:00 Received Prothrombin Time INR Stat Lab 05/17/24 12:25 Completed Rapid Plasma Reagin Ab Titer Stat Lab 05/17/24 14:00 Received Salicylate Stat Lab 05/17/24 12:25 Completed UA [Urinalysis and Microscopic] Stat Lab 08/07/24 13:05 Completed UDS [Drug Screen,Urine] Stat Lab 05/17/24 13:05 Completed Urine Culture Stat Micro 05/17/24 13:05 Received VBG [Venous Blood Gas] Stat RT 05/17/24 12:24 Completed US OB follow up Stat Ultrasound 05/17/24 13:00 Taken ECG Data Tracing #1: I reviewed this ECG and interpreted as documented below: Normal sinus rhythm with a ventricular rate of [address] changes concerning for ischemia. Normal axis and intervals ECG initial impression date: 05/17/24 ECG initial impression time: 12:20 Medical Decision Narrative: In summary, this patient is a 24-year-old female presenting to the Emergency Department for evaluation of being found down. Differential diagnoses considered include but are not limited to overdose, polysubstance ingestion, traumatic injury, fall, placental abruption, other complication of . Ruling out the most morbid conditions drove assessment. It should be noted patient's history includes methadone dependence. This complicates all aspects of care by increasing patient's risk for morbidity. I reviewed patient's past medical records and noted previous OB note. Previous OB ultrasound from 03/02/2024 demonstrates a viable fetus in the cephalic position with posterior placenta grade 2. On exam, the patient is somnolent but exam improved with Narcan. No focal neurologic deficits. No obvious external signs of trauma. E FAST exam is negative. Fingerstick glucose normal. EKG is reassuring. workup included CBC, CMP, acetaminophen, salicylate, ethanol level, VBG, urinalysis, urine drug screen. Formal OB ultrasound ordered, as I was not able to get good visualization of heart to get heart tones. There was a lot of shadowing and artifact for whatever reason upon attempt. Patient was given a bolus of IV fluids as well as IV Zofran. After initial assessment, she was given a total of 2 mg of IV Narcan here. She was then alert, oriented, and ambulating throughout the emergency department with no focal neurologic deficits. I had an interactive discussion with the polysom tech and on formal ultrasound, she has no amniotic fluid. heart tones measured approximately 117. Given this, initiated urgent discussions with REGISTERED SALES ASSISTANT who advised transporting the patient to labor and delivery. Labs obtained thus far demonstrate mild anemia with respiratory alkalosis. Labs without acutely concerning abnormalities otherwise. Patient was transported to labor and delivery in stable condition for definitive management. Procedures Limited Ultrasound Findings:: Limited EFAST ultrasound Indication: Found down on stairs, unknown if patient had possible trauma Views: [LUQ, RUQ, Pelvis, Limited Cardiac, Limited Thoracic] Interpretation: Peritoneal Free Fluid: Absent Pericardial effusion: Absent Right thoracic free Fluid: Absent Left thoracic Free Fluid: Absent Right lung pneumothorax: Absent Left Lung pneumothorax: Absent Impression: Negative EFAST ultrasound Images were saved to permanent archive The study was technically adequate CPT 90582-54 (limited cardiac) 60410-47 (limited abdominal) 36351-14 (chest) This study was performed by me, and I personally interpreted all images/videos. Based on my clinical judgement, these images were adequate and did not necessitate further imaging. Critical Care Critical Care Time Critical Care Time: Yes Attestation: On 05/17/24, the high probability of a clinically significant, sudden or life threatening deterioration of the following system(s) required my full and direct attention, intervention and personal management. The time I documented below is in addition to time spent performing reported procedures but includes the following listed in this critical care notation. Total Time Total Critical Care Time: 35
[2024-05-17 13:25] LABS: Bacteria,Urine 2+ /lpf; Barbiturates Screen,Urine Negative ng/ml (<200); Benzodiazepines Screen,Urine Negative ng/ml (<200); WBC,Urine 20-50 #/hpf (0-3)
[2024-05-17 13:26] LABS: Amphetamine/Metha Screen,Urine Negative ng/ml (<1000)
[2024-05-17 13:27] LABS: Cannabinoid Screen,Urine Negative ng/ml (<50); Methadone Screen,Urine Positive ng/ml (<300)
[2024-05-17 13:28] LABS: Cocaine Screen,Urine Negative ng/ml (<300)
[2024-05-17 13:29] LABS: Opiate Screen,Urine Negative ng/ml (<300); Phencyclidine Screen,Urine Negative ng/ml (<25)
[2024-05-17 14:11] LABS: Basophils # 0.1 K/mm3 (0-0.2); Basophils % 0.4 % (0.1-2.0); Eosinophils # 0.1 K/mm3 (0.0-0.4); Eosinophils % 0.9 % (0.1-12.0); Hematocrit 33.4 % (37.0-47.0); Hemoglobin 11.6 g/dL (12.2-16.2); Lymphocytes # 1.7 K/mm3 (0.7-4.5); Lymphocytes % 16.3 % (10-50); Mean Corpuscular HGB Conc 34.7 g/dL (31.8-35.4); Mean Corpuscular Hemoglobin 33.1 pg (27.0-31.2); Mean Corpuscular Volume 95.4 fl (81-99); Mean Platelet Volume 9.2 fl (7.4-10.4); Monocytes # 0.4 K/mm3 (0.1-1.0); Monocytes % 3.5 % (1.7-9.3); Neutrophils # 8.4 K/mm3 (1.8-7.8); Neutrophils % 78.8 % (37.0-80.0); Platelet Count 271 K/mm3 (142-424); Red Blood Count 3.51 M/mm3 (4.20-5.40); Red Cell Distribution Width 13.8 % (11.5-17.5); White Blood Count 10.7 K/mm3 (4.8-10.8)
--- NOTE | 2024-05-17 14:19 | EXP.LABOR.NO ---
Labor Note Subjective: Date: 05/17/24 Time: 14:19 regular contraction Objective: NST:: Reactive Contractions:: every 2-3 minutes Cervical Dilation:: 4-5 Effacement:: 75% Station: -1 Membranes: artificially ruptured Comment:: There was just a few drops of fluid. Fetus: Monitoring?: Yes monitoring type:: External Assessment: Labor progressing?: Yes Cephalopelvic disproportion?: No Plan: Anesthesia for epidural?: Yes Continue to labor down?: Yes Plan for ?: No Continue to monitor?: Yes Start pushing?: No Comment:: She is admitted in early labor. She says she has been alex for the last couple of days. She has had minimal care.
--- NOTE | 2024-05-17 15:00 | SW/DCPLANNER ---
Addendum entered by Stacey [place] 05/18/24 09:34: I have updated Amaya w/ Social Work [phone]. Addendum entered by Stacey [place] 05/18/24 07:57: Per Central Intake this case DOES meet criteria for investigation. Addendum entered by [facility] 05/18/24 07:54: Per OB staff (Shivani Tyson): Central Intake called ([phone]). Spoke with Marlin . Notified of delivery of (and brief hx of mom). Case #[id number]. Original Note: I received a referral for this patient regarding: overdose w/ other children in the house, 38 weeks , admits Methadone and Fentanyl use and police present in ED for possible charges. Once patient delivers I will make a report to Central Intake due to overdosing at home while caring for other children and drug use. Yuridia Renteria ([phone]) w/ CPS has also contacted me today regarding situation. Per Officer Alysha he is currently working to get an active warrant for patient's arrest once she is discharged from [facility]. I will continue to follow up w/ patient and OB staff regarding situation. I have informed both Elpidio Paul and Jessy Paul regarding situation.
--- NOTE | 2024-05-17 15:35 | EXP.ANES.CKL ---
[facility] Disclaimer: The information contained in this section may have been updated after the patient was seen, as this information can be updated by other users. Medical History BCP ( control pills) initiation UTI (urinary tract infection) Family History Other Alcoholism Diabetes FHx: mental illness Heart attack Stroke Substance abuse Social History (Updated 05/17/24 @ 15:21 by Michelle Hobson RN) Smoking Status: Current every day smoker tobacco type: e-cigarettes alcohol intake: never substance use type: former substance user and marijuana current occupational status: unemployed Travel in the last 8 weeks: None [facility] Anesthesia Checklist Patient Identification Patient Identification: Arm Band Structural Data Admitted From: Home Planned Operative Procedure/s: Labor Epidural Consent for Planned Operative Procedure(s) Verified: Yes Verified Documents: Surgical Consent and History and Physical Additional verifications Anesthesia Reactions: No Neurological Assessment Level of Consciousness: Awake, Alert and Appropriate Anesthesia Plan Anesthesia Risk discussed: Yes Anesthesia Plan: Verified ASA Class: II Anesthesia Type: Epidural
[2024-05-17] MEDS: AMPICILLIN SODIUM 2 GM in 0.9 % SODIUM CHLORIDE 100 ML IV (15:38)
[2024-05-17] MEDS: DEXTROSE 5%-LACTATED RINGERS 1,000 ML 500 ML IV (15:39)
--- NOTE | 2024-05-17 16:45 | EXP.LABOR.NO ---
Labor Note Subjective: Date: 05/17/24 Time: 16:45 regular contraction Objective: NST:: Reactive Contractions:: every 2-3 minutes Cervical Dilation:: 5-6 Effacement:: 90% Station: -2 Membranes: artificially ruptured Fetus: Monitoring?: Yes monitoring type:: Internal and External Comment:: I placed an IUPC Assessment: Labor progressing?: Yes Cephalopelvic disproportion?: No Plan: Anesthesia for epidural?: Yes Continue to labor down?: Yes Plan for ?: No Continue to monitor?: Yes Start pushing?: No Comment:: She is progressing slowly. I placed an IUPC to monitor the contractions. We will expect a vaginal livery since her baby is quite small and she has had a previous 7+ pound baby.
--- NOTE | 2024-05-17 16:51 | P.HP_ITS ---
History of Present Illness *Admission Date: 05/17/24 *Reason for visit:: Early labor, limited care, maternal drug abuse, anhydramnios. *History of present illness: She is a 24-year-old 5 para 2 abortus 2 at 38+3 weeks gestational age. This patient is a 24-year-old female on chronic methadone maintenance therapy he is currently 38 weeks presenting to the emergency department after being found down. Per EMS, the patient was found facedown on a set of 3 stairs. She appeared to be facing forward like she was going up the stairs. No obvious external signs of trauma per EMS. They gave her 2 mg of IV Narcan, and she became responsive and was alert and oriented. She then again became lethargic and hard to arouse, so she was given another milligram of IV Narcan here in the emergency department and then became more alert again. She denies any drug use aside from her methadone, which she states was administered today. She states that she follows regularly with Dr. Bates for OB care, but I see last visit from 03/02/2024 showed that it was her first visit and she was noted to be 27 weeks gestational age at that time. Patient denies any fall. She denies any recent fevers, chills, chest pain, shortness of breath, back pain, abdominal pain, leakage of fluid, vaginal bleeding, leg or arm pain, or other concerns. According to police officers who arrived on scene, her boyfriend was also at the scene and was similarly difficult to arouse. After being seen in the ER she was sent to labor and delivery and found to be alex every 2 to 3 minutes. Her cervix was found to be 4 to 5 cm dilated. As result of that she is admitted for delivery. Ultrasound showed anhydramnios with 1 small fluid pocket 0.8 cm in depth. profile was not done. She has had only 1 visit in February. Ultrasound done at 21 weeks gestational age in January confirmed her due date of May 29, 2024. Group B strep is unknown. She denies any leakage of fluid. No fever, no chills. [facility] Disclaimer: The information contained in this section may have been updated after the patient was seen, as this information can be updated by other users. Medical History BCP ( control pills) initiation UTI (urinary tract infection) Family History Substance abuse Diabetes Alcoholism Heart attack FHx: mental illness Stroke Social History Smoking Status: Current every day smoker tobacco type: e-cigarettes alcohol intake: never substance use type: former substance user and marijuana current occupational status: unemployed Travel in the last 8 weeks: None Review of Systems Review of Systems Review of systems:: pertinent systems reviewed and negative unless documented below Meds Home Medications and Allergies Home Medications ?Medication ?Instructions ?Recorded ?Confirmed ?Type vits no.126-ferrous fum 1 tab PO DAILY Supplement 01/22/21 05/17/24 History 28 mg iron-folic acid 800 mcg tablet methadone 10 mg/mL oral 120 mg PO DAILY 05/17/24 05/17/24 History concentrate (Methadone Intensol) New Prescriptions to Start Prescriptions: Allergies Allergy/AdvReac Type Severity Reaction Status Date / Time No Known Allergies Allergy Verified 03/02/24 11:22 Exam Data for Last 24 hours Vital signs and Labs for Last 24 Hours: Temp Pulse Resp BP Pulse Ox O2 Del Method 98.5 F 58 L 17 117/66 97 Room Air 05/17/24 15:10 05/17/24 15:10 05/17/24 15:10 05/17/24 15:10 05/17/24 15:10 05/17/24 15:10 Laboratory Results - last 24 hr 05/17/24 12:24: VBG pH 7.52 H, VBG pCO2 21.6 L, VBG pO2 192.7 H, VBG HCO3 17.0 L , VBG Total CO2 17.7 L, VBG O2 Saturation 99.1 H, VBG Base Excess -5.9 L, VBG Lactic Acid 1.5 05/17/24 12:25: WBC 11.4 H, RBC 3.70 L, Hgb 12.1 L, Hct 35.0 L, MCV 94.4, MCH 32.7 H, MCHC 34.7, RDW 14.0, Plt Count 286, MPV 9.4, Neut % (Auto) 74.8, Lymph % (Auto) 20.3, [place] % (Auto) 3.7, Eos % (Auto) 0.7, Baso % (Auto) 0.5, Neut # (Auto) 8.5 H, Lymph # (Auto) 2.3, [place] # (Auto) 0.4, Eos # (Auto) 0.1, Baso # (Auto) 0.1, PT 9.4 L, INR 0.82 L, APTT 26.2, Sodium 135 L, Potassium 3.9, Chloride 110 H, Carbon Dioxide 19 L, Anion Gap 9.9, BUN 8, Creatinine 0.60, Estimated Creat Clear 183, Estimated GFR 124, Est GFR ( Amer) 150, Glucose 103 H, Calcium 8.7, Total Bilirubin 0.6, AST 31, ALT 28, Alkaline Phosphatase 234 H, Total Protein 7.0, Albumin 3.6, Globulin 3.4 H, Albumin/Globulin Ratio 1.1, Salicylates < 1.0 L, Acetaminophen < 10 L, Plasma/Serum Alcohol < 10 05/17/24 13:05: Urine Color Yellow, Urine Appearance Cloudy, Urine pH 6.5, Ur Specific [place] 1.025, Urine Protein Trace, Urine Glucose (UA) Negative, Urine Ketones Negative, Urine Blood Trace-i, Urine Nitrate Negative, Urine Bilirubin 1+ A, Urine Urobilinogen 1.0, Ur Leukocyte Esterase 2+ A, Urine RBC 3-5, Urine WBC 20-50, Ur Squamous Epith Cells 10-20, Urine Bacteria 2+, Urine Opiates Screen Negative, Urine Methadone Screen Positive H, Ur Barbituates Screen Negative, Ur Phencyclidine Scrn Negative, Ur Amphetamines Screen Negative, U Benzodiazepines Scrn Negative, Urine Cocaine Screen Negative, U Marijuana (THC) Screen Negative 05/17/24 14:00: WBC 10.7, RBC 3.51 L, Hgb 11.6 L, Hct 33.4 L, MCV 95.4, MCH 33.1 H, MCHC 34.7, RDW 13.8, Plt Count 271, MPV 9.2, Neut % (Auto) 78.8, Lymph % (Auto) 16.3, [place] % (Auto) 3.5, Eos % (Auto) 0.9, Baso % (Auto) 0.4, Neut # (Auto) 8.4 H, Lymph # (Auto) 1.7, [place] # (Auto) 0.4, Eos # (Auto) 0.1, Baso # (Auto) 0.1, Blood Type O Negative, Antibody Screen Negative I & O for Last 24 hours: Intake & Output 05/15/24 05/16/24 05/17/24 05/18/24 11:59 11:59 11:59 11:59 Weight 175 lb Constitutional Constitutional: no acute distress *Routine HEENT Exam Head: Present normocephalic Eye: Present EOMI and PERRL ENT: Present mucous membranes moist *Routine Neck Exam Neck: Present supple; Absent lymphadenopathy *Routine Respiratory Exam Respiratory: Present CTA bilaterally *Routine Cardiovascular Exam Cardiovascular: Present RRR *Routine Abdominal Exam Abdominal: Present soft and normoactive bowel sounds; Absent tenderness *Routine Rectal Exam Rectal:: deferred *Routine Genitalia Exam Genitalia:: deferred *Routine Extremities Exam Extremities: Absent cyanosis, clubbing or edema *Routine Skin Exam Skin: Present warm; Absent rash *Routine Neurological Exam Neurological: Present alert and oriented X3 Assessment and Plan *Assessment and plan (1) complicated by maternal drug use, antepartum: Status: Acute Category: Medical Code(s): O99.320 - Drug use complicating , unspecified trimester (2) Methadone maintenance treatment affecting in third trimester: Status: Acute Category: Medical Code(s): O99.323 - Drug use complicating , third trimester; F11.20 - Opioid dependence, uncomplicated (3) Limited care, antepartum: Status: Acute Category: Medical Code(s): O09.30 - Supervision of with insufficient care, unspecified trimester Plan She is admitted for labor since she is found to be 4 to 5 cm dilated. She is alex every 2 minutes. She has had 2 previous vaginal deliveries so we do expect her to have a vaginal delivery again. She had an ultrasound that showed the fetus in the cephalic presentation. We will go ahead and start GBS prophylaxis since her GBS status is unknown and it is not clear whether she was leaking fluid or just had oligohydramnios as a result of poor care. coordinator of genetic services will be contacted given her history.
--- NOTE | 2024-05-17 17:42 | PC.NURSE ---
Spoke with Ciara Villavicencio APPLICATION DESIGN ENGINEER, No one is allowed to visit pt. as pt. is at high flight risk and for family to smuggle drugs and repeat overdose. grandmother Mera in room has custody of pt. 2nd child and per DCBS possibly will have custody of this infant as well. APPLICATION DESIGN ENGINEER v/u and states No one else but infant grandmother Mera is allowed to be in the room except [employer] workers and Police. Nurse v/u.
[2024-05-17] MEDS: OXYTOCIN/RINGERS LACTATE 30 UNITS/500 ML BAG IV (18:25)
[2024-05-17] MEDS: AMPICILLIN SODIUM 1 GM in 0.9 % SODIUM CHLORIDE 50 ML IV (19:09)
[2024-05-17] MEDS: OXYTOCIN/RINGERS LACTATE 30 UNITS/500 ML BAG 999 UNITS IV (19:27)
--- NOTE | 2024-05-17 19:40 | P.PCN_ITS ---
Delivery Note Delivery Date:: 05/17/24 Delivery Time:: 19:26 Anesthesia Type: Epidural Was labor medically induced?: No Induction method: none Gestational age (weeks): 38 delivered prior to 39 weeks?: Yes Justification for early elective delivery:: Active Labor and Oligohydraminos Gender: Male at 1 minute: 8 at 5 minutes: 9 Delivery Procedure:: She is a 24-year-old 5 para 2 abortus 2 who has had only 1 visit. She was found by EMS today at home unconscious and was given Narcan twice. She says she got her methadone today and she gets sleepy after she takes her methadone according to the patient. She does admit to having used fentanyl in the past. Ultrasound confirmed that she had no fluid around the baby. The baby was also about 4 weeks behind on its abdominal circumference growth. As result of that we elected to see her to continue to labor and deliver her. She was found to be 4 to 5 cm dilated here in labor and delivery. She had her membranes ruptured and augmented with oxytocin. She delivered spontaneously under labor epidural liveborn male child at 7:26 PM in the evening of May 17, 2024. I delivered the head it was noted that there was a nuchal cord x 2 and this was easily reduced. This was followed by deliver the anterior shoulder and the rest the 's body atraumatically. The baby was vigorous and the oropharynx and nasopharynx were bulb suction. We allowed the cord to continue to pulsate for approximately 1 minute. The cord is then doubly clamped and cut and the was handed off to nurses suicide Apgars of 8 at 1 minute and 9 at 5 minutes. We then obtained cord blood. She received IV oxytocin using gentle traction of the cord and countertraction the fundus I was able to easily deliver the placenta intact. He had a normal three-vessel cord. There were no perineal or vaginal lacerations. She has Rh- blood, she is rubella unknown and GBS unknown. She did receive IV ampicillin while in labor. Her music grapher is Dr. Grover. Placental Delivery Description: Spontaneous
[2024-05-17] MEDS: OXYTOCIN/RINGERS LACTATE 30 UNITS/500 ML BAG 40 UNITS IV (19:43)
[2024-05-17] MEDS: IBUPROFEN 400 MG TABLET 800 MG PO (21:47)
[2024-05-17] MEDS: ACETAMINOPHEN 500MG TAB 1000 MG PO (21:48)
[2024-05-18] MEDS: WITCH HAZEL 40 PADS/BOX 1 EACH TP (00:12)
[2024-05-18] MEDS: BENZOCAINE-MENTHOL SPRAY 56GM CAN TP (00:12)
[2024-05-18] MEDS: ACETAMINOPHEN 500MG TAB 1000 MG PO ×2 (04:33→11:45)
[2024-05-18] MEDS: SENNA 8.6MG TABLET 8.6 MG PO ×2 (04:34→11:46)
[2024-05-18 06:40] LABS: Hematocrit 30.1 % (37.0-47.0); Hemoglobin 10.5 g/dL (12.2-16.2)
[2024-05-18] MEDS: ALUMINUM/MAGNESIUM/SIMETHICONE 30ML UDC 30 ML PO (08:54)
[2024-05-18] MEDS: IBUPROFEN 400 MG TABLET 800 MG PO (11:45)
--- NOTE | 2024-05-18 11:45 | PC.NURSE ---
Pt was able to have large bowel movement after 3 days of constipation.
--- NOTE | 2024-05-18 12:03 | P.DS_ITS ---
General Admission date:: 05/17/24 Discharge date: 05/18/24 HPI HPI HPI: She is a 24-year-old 5 para 2 abortus 2 at 38+3 weeks gestational age. This patient is a 24-year-old female on chronic methadone maintenance therapy he is currently 38 weeks presenting to the emergency department after being found down. Per EMS, the patient was found facedown on a set of 3 stairs. She appeared to be facing forward like she was going up the stairs. No obvious external signs of trauma per EMS. They gave her 2 mg of IV Narcan, and she became responsive and was alert and oriented. She then again became lethargic and hard to arouse, so she was given another milligram of IV Narcan here in the emergency department and then became more alert again. She denies any drug use aside from her methadone, which she states was administered today. She states that she follows regularly with Dr. Bates for OB care, but I see last visit from 03/02/2024 showed that it was her first visit and she was noted to be 27 weeks gestational age at that time. Patient denies any fall. She denies any recent fevers, chills, chest pain, shortness of breath, back pain, abdominal pain, leakage of fluid, vaginal bleeding, leg or arm pain, or other concerns. According to police officers who arrived on scene, her boyfriend was also at the scene and was similarly difficult to arouse. After being seen in the ER she was sent to labor and delivery and found to be alex every 2 to 3 minutes. Her cervix was found to be 4 to 5 cm dilated. As result of that she is admitted for delivery. Ultrasound showed anhydramnios with 1 small fluid pocket 0.8 cm in depth. profile was not done. She has had only 1 visit in February. Ultrasound done at 21 weeks gestational age in January confirmed her due date of May 29, 2024. Group B strep is unknown. She denies any leakage of fluid. No fever, no chills. Hospital Course Hospital Course Hospital Course: On arrival in labor and delivery she was found to be 4 to 5 cm dilated and and having contractions every 2 to 3 minutes. Ultrasound revealed that she had no fluid around the baby. As a result of that we elected to deliver the baby. She had her membranes ruptured and under labor epidural she progressed to full dilation. She delivered a liveborn male child at 1726 on the evening of May 17, 2024. The baby had Apgars of 8 at 1 minute and 9 at 5 minutes. She has done well and has remained afebrile throughout hospitalization. She is eating and drinking and ambulating. She is bottlefeeding. Her lochia is normal. Her baby has severe withdrawal symptoms and is being transferred to the [facility] neonatology unit. As result of this we will be discharging Diana home today. She has O Rh- blood and will receive RhoGAM if the baby is positive. Her group B strep status was unknown. Her rubella status is unknown. Her condition on discharge is stable and improved. Exam Data for Last 24 hours Vital signs and Labs for Last 24 Hours: Temp Pulse Resp BP Pulse Ox O2 Del Method 98.5 F 58 L 17 117/66 97 Room Air 05/17/24 15:10 05/17/24 15:10 05/17/24 15:10 05/17/24 15:10 05/17/24 15:10 05/17/24 15:10 Laboratory Results - last 24 hr 05/17/24 12:24: VBG pH 7.52 H, VBG pCO2 21.6 L, VBG pO2 192.7 H, VBG HCO3 17.0 L , VBG Total CO2 17.7 L, VBG O2 Saturation 99.1 H, VBG Base Excess -5.9 L, VBG Lactic Acid 1.5 05/17/24 12:25: WBC 11.4 H, RBC 3.70 L, Hgb 12.1 L, Hct 35.0 L, MCV 94.4, MCH 32.7 H, MCHC 34.7, RDW 14.0, Plt Count 286, MPV 9.4, Neut % (Auto) 74.8, Lymph % (Auto) 20.3, [place] % (Auto) 3.7, Eos % (Auto) 0.7, Baso % (Auto) 0.5, Neut # (Auto) 8.5 H, Lymph # (Auto) 2.3, [place] # (Auto) 0.4, Eos # (Auto) 0.1, Baso # (Auto) 0.1, PT 9.4 L, INR 0.82 L, APTT 26.2, Sodium 135 L, Potassium 3.9, Chloride 110 H, Carbon Dioxide 19 L, Anion Gap 9.9, BUN 8, Creatinine 0.60, Estimated Creat Clear 183, Estimated GFR 124, Est GFR ( Amer) 150, Glucose 103 H, Calcium 8.7, Total Bilirubin 0.6, AST 31, ALT 28, Alkaline Phosphatase 234 H, Total Protein 7.0, Albumin 3.6, Globulin 3.4 H, Albumin/Globulin Ratio 1.1, Salicylates < 1.0 L, Acetaminophen < 10 L, Plasma/ Serum Alcohol < 10 05/17/24 13:05: Urine Color Yellow, Urine Appearance Cloudy, Urine pH 6.5, Ur Specific [place] 1.025, Urine Protein Trace, Urine Glucose (UA) Negative, Urine Ketones Negative, Urine Blood Trace-i, Urine Nitrate Negative, Urine Bilirubin 1+ A, Urine Urobilinogen 1.0, Ur Leukocyte Esterase 2+ A, Urine RBC 3-5, Urine WBC 20-50, Ur Squamous Epith Cells 10-20, Urine Bacteria 2+, Urine Opiates Screen Negative, Urine Methadone Screen Positive H, Ur Barbituates Screen Negative, Ur Phencyclidine Scrn Negative, Ur Amphetamines Screen Negative, U Benzodiazepines Scrn Negative, Urine Cocaine Screen Negative, U Marijuana (THC) Screen Negative 05/17/24 14:00: WBC 10.7, RBC 3.51 L, Hgb 11.6 L, Hct 33.4 L, MCV 95.4, MCH 33.1 H, MCHC 34.7, RDW 13.8, Plt Count 271, MPV 9.2, Neut % (Auto) 78.8, Lymph % (Auto) 16.3, [place] % (Auto) 3.5, Eos % (Auto) 0.9, Baso % (Auto) 0.4, Neut # (Auto) 8.4 H, Lymph # (Auto) 1.7, [place] # (Auto) 0.4, Eos # (Auto) 0.1, Baso # (A uto) 0.1, Blood Type O Negative, Antibody Screen Negative 05/18/24 06:28: Hgb 10.5 L, Hct 30.1 L I & O for Last 24 hours: Intake & Output 05/16/24 05/17/24 05/18/24 05/19/24 11:59 11:59 11:59 11:59 Weight 175 lb Constitutional Constitutional: no acute distress *Routine HEENT Exam Head: Present normocephalic *Routine Respiratory Exam Respiratory: Present normal respiratory effort; Absent accessory muscle use Results Data Completed and Pending Labs on day of discharge: Labs from last 24 hours 05/18/24 05/17/24 05/17/24 06:28 14:00 13:05 WBC 10.7 RBC 3.51 L Hgb 10.5 L 11.6 L Hct 30.1 L 33.4 L MCV 95.4 MCH 33.1 H MCHC 34.7 RDW 13.8 Plt Count 271 MPV 9.2 Neut % (Auto) 78.8 Lymph % (Auto) 16.3 [place] % (Auto) 3.5 Eos % (Auto) 0.9 Baso % (Auto) 0.4 Neut # (Auto) 8.4 H Lymph # (Auto) 1.7 [place] # (Auto) 0.4 Eos # (Auto) 0.1 Baso # (Auto) 0.1 PT INR APTT VBG pH VBG pCO2 VBG pO2 VBG HCO3 VBG Total CO2 VBG O2 Saturation VBG Base Excess VBG Lactic Acid Sodium Potassium Chloride Carbon Dioxide Anion Gap BUN Creatinine Estimated Creat Clear Estimated GFR Est GFR ( Amer) Glucose Calcium Total Bilirubin AST ALT Alkaline Phosphatase Total Protein Albumin Globulin Albumin/Globulin Ratio Urine Color Yellow Urine Appearance Cloudy Urine pH 6.5 Ur Specific [place] 1.025 Urine Protein Trace Urine Glucose (UA) Negative Urine Ketones Negative Urine Blood Trace-i Urine Nitrate Negative Urine Bilirubin 1+ A Urine Urobilinogen 1.0 Ur Leukocyte Esterase 2+ A Urine RBC 3-5 Urine WBC 20-50 Ur Squamous Epith Cells 10-20 Urine Bacteria 2+ Salicylates Urine Opiates Screen Negative Urine Methadone Screen Positive H Acetaminophen Ur Barbituates Screen Negative Ur Phencyclidine Scrn Negative Ur Amphetamines Screen Negative U Benzodiazepines Scrn Negative Urine Cocaine Screen Negative U Marijuana (THC) Screen Negative Plasma/Serum Alcohol Blood Type O Negative Antibody Screen Negative 05/17/24 05/17/24 12:25 12:24 WBC 11.4 H RBC 3.70 L Hgb 12.1 L Hct 35.0 L MCV 94.4 MCH 32.7 H MCHC 34.7 RDW 14.0 Plt Count 286 MPV 9.4 Neut % (Auto) 74.8 Lymph % (Auto) 20.3 [place] % (Auto) 3.7 Eos % (Auto) 0.7 Baso % (Auto) 0.5 Neut # (Auto) 8.5 H Lymph # (Auto) 2.3 [place] # (Auto) 0.4 Eos # (Auto) 0.1 Baso # (Auto) 0.1 PT 9.4 L INR 0.82 L APTT 26.2 VBG pH 7.52 H VBG pCO2 21.6 L VBG pO2 192.7 H VBG HCO3 17.0 L VBG Total CO2 17.7 L VBG O2 Saturation 99.1 H VBG Base Excess -5.9 L VBG Lactic Acid 1.5 Sodium 135 L Potassium 3.9 Chloride 110 H Carbon Dioxide 19 L Anion Gap 9.9 BUN 8 Creatinine 0.60 Estimated Creat Clear 183 Estimated GFR 124 Est GFR ( Amer) 150 Glucose 103 H Calcium 8.7 Total Bilirubin 0.6 AST 31 ALT 28 Alkaline Phosphatase 234 H Total Protein 7.0 Albumin 3.6 Globulin 3.4 H Albumin/Globulin Ratio 1.1 Urine Color Urine Appearance Urine pH Ur Specific [place] Urine Protein Urine Glucose (UA) Urine Ketones Urine Blood Urine Nitrate Urine Bilirubin Urine Urobilinogen Ur Leukocyte Esterase Urine RBC Urine WBC Ur Squamous Epith Cells Urine Bacteria Salicylates < 1.0 L Urine Opiates Screen Urine Methadone Screen Acetaminophen < 10 L Ur Barbituates Screen Ur Phencyclidine Scrn Ur Amphetamines Screen U Benzodiazepines Scrn Urine Cocaine Screen U Marijuana (THC) Screen Plasma/Serum Alcohol < 10 Blood Type Antibody Screen DS: Diagnosis Discharge Diagnosis (1) complicated by maternal drug use, antepartum: Status: Acute Code(s): O99.320 - Drug use complicating , unspecified trimester (2) Methadone maintenance treatment affecting in third trimester: Status: Acute Code(s): O99.323 - Drug use complicating , third trimester; F11.20 - Opioid dependence, uncomplicated (3) Limited care, antepartum: Status: Acute Code(s): O09.30 - Supervision of with insufficient care, unspecified trimester (4) Normal delivery at term: Status: Acute Code(s): O80 - Encounter for full-term uncomplicated delivery Meds Home Medications and Allergies Home Medications ?Medication ?Instructions ?Recorded ?Confirmed ?Type vits no.126-ferrous fum 1 tab PO DAILY Supplement 01/22/21 05/17/24 History 28 mg iron-folic acid 800 mcg tablet methadone 10 mg/mL oral 120 mg PO DAILY 05/17/24 05/17/24 History concentrate (Methadone Intensol) New Prescriptions to Start Prescriptions: Allergies Allergy/AdvReac Type Severity Reaction Status Date / Time No Known Allergies Allergy Verified 03/02/24 11:22 Discharge Plan Disposition Patient Disposition: Home, Self-Care Discharge Order Discharge Orders: Discharge Order (Routine); Ordered 05/18/24 Ordered By: Jeremías Antonio Follow up Plan Prescriptions/Medication Reconciliation: Continued vit [id number] 1 EACH tablet 1 tab PO DAILY methadone [Methadone Intensol] 10 mg/mL Concentrate 120 mg PO DAILY Problem Reconciliation Problems Reviewed?: Yes Patient Discharge Instructions ACTIVITY: No heavy lifting DIET: continue same diet Print Language: Yi Providers Primary Care Provider: Provider,Referral Admit Provider: Jeremías Antonio Attending Provider: Jeremías Antonio
[2024-05-19 08:24] LABS: HIV Screen 4th Generation wRfx Non Reactive (Non Reactive); Hepatitis B Surface Antigen Negative (Negative); Rubella Antibodies, IgG 1.22 index (Immune >0.99)
[2024-05-19 11:28] LABS: Rapid Plasma Reagin Ab Titer Non Reactive titer (NonRea<1:1)
== END 2024-05-18 13:05 | disposition home or self-care (01) | DRG 806 ==
LOC: ER 13:28 → OB 13:35
PROVIDERS: Admitting Provider Nurse Practitioner Obstetrics & Gynecology; Emergency Provider Emergency Medicine; Visit Provider Nurse Practitioner Obstetrics & Gynecology
DX: O41.03X0 Oligohydramnios, third trimester, not applicable or unspecified (principal); F11.20 Opioid dependence, uncomplicated; Z37.0 Single live birth; O99.324 Drug use complicating childbirth; Z3A.38 38 weeks gestation of pregnancy; O69.81X0 Labor and delivery complicated by cord around neck, without compression, not applicable or unspecified; O99.334 Smoking (tobacco) complicating childbirth; F17.290 Nicotine dependence, other tobacco product, uncomplicated
CPT/HCPCS: 59409; 36415; 59025; 76816; 80053; 80307; 80320; 80329; 81001; 82803; 85014; 85018; 85025; 85610; 85730; 86593; 86762; 86850; 87086; 87340; 93005; 94761; 99291; C1758; G0283; J0290; J2310; J2405; J7120

== ENCOUNTER 2024-11-29 13:30 | Outpatient (CLI) | payer OTHER, SELFPAY ==
--- NOTE | 2024-11-29 13:30 | US_ITS ---
PROCEDURE: US OB >= 14 WEEKS FETUS CLINICAL INDICATION: dates Late care COMPARISON: No exams were available for comparison FINDINGS: Transabdominal sonographic images of the pelvis were obtained. Her last menstrual period is unknown. Single viable intrauterine gestation. Cephalic position. Placenta: Posteriorplacenta grade 1. There are several placental lakes. There is an average amount of fluid. The cervix appears satisfactory. Closed and measuring 3.29 cm in length. Complete survey performed and was unremarkable on the submitted images as in PACS. No discrete anomalies identified on survey imaging by technologist. Active fetus. Three-vessel cord with satisfactory umbilical cord insertion. 4- chamber heart noted. [place], aortic arch, LVOT, RVOT, three-vessel view appear normal. Survey of brain & ventricles Unremarkable. Cerebellum, thalamus, choroid plexus, cisterna magna appear normal. Face and neck survey unremarkable. Profile, nasion, lips and nose appeared normal. Diaphragm and chest views unremarkable. Abdomen: Both kidneys noted and unremarkable. Stomach and bladder noted and satisfactory. Spine: Survey of the spine satisfactory with no anomalies identified nor imaged. Cervical, thoracic, lower spine appear normal. Both arms and legs noted. Amniotic Fluid: Adequate. MVP 2.58 cm Measurements: Average ultrasound age 23weeks 3days. Estimated due date by ultrasound age 0603/25/2025. Estimated weight 609g BPD = 23weeks 1day HC = 22weeks 6days AC = 23weeks 6days FL = 23weeks 5days Heart Rate = 152bpm Cerebellum = 22weeks Humerus = 23weeks 1day HC/AC is 1.08 FL/BPD is 0.75 FL/AC is 0.22 IMPRESSION: 1. Viable fetus in the cephalic presentation with a posterior placenta grade 1. There are several placental lakes. 2. The fluid is within normal limits with an MVP 2.58 cm. 3. Anatomical scan appears normal. 4. profile was difficult to see due to the position and would suggest repeat scan in 4 weeks. 5. She measures 23 weeks and 3 days and her AGATHA will be 03/25/2025. Dictated by: Jeremías Antonio MD 11/29/2024 15:05 Jeremías Antonio MD in [place] 11/29/2024 15:05
== END 2024-11-29 23:59 | disposition home or self-care (01) ==
LOC: RAD 13:30
PROVIDERS: PCP Physician Assistant; Visit Provider Nurse Practitioner Obstetrics & Gynecology
DX: O26.842 Uterine size-date discrepancy, second trimester (principal); Z3A.23 23 weeks gestation of pregnancy
CPT/HCPCS: 76805